=== PATIENT | female | born 1970 | race Two or more races ===

== ENCOUNTER 2018-10-26 10:50 | Emergency (ER) | payer SELFPAY ==
[~2018-10-26] VITALS: Ht 152.4 cm; Wt 50.0 kg
[2018-10-26 10:55] VITALS: BP 138/79; Ht 152.4 cm; Wt 50.0 kg
[2018-10-26 11:22] LABS: BASOPHILS 0.6 % (0-2); EOSINOPHILS 3.9 % (0-7); HEMATOCRIT 37.5 % (36.0-48.0); HEMOGLOBIN 12.7 g/dL (12-16); IMMATURE GRANULOCYTES 0.1 % (0-5); MCH 31.8 pg (26.0-34.0); MCHC 33.9 g/dL (31.0-37.0); MEAN PLATELET VOLUME 10.2 fL (7.4-10.4); MONOCYTES 5.6 % (2-11); NEUTROPHILS 52.8 % (40-80); PLATELET COUNT 216 10x3/uL (130-400); RBC 3.99 10x6/uL (4.00-5.40); RDW 12.9 % (11.5-14.5)
[2018-10-26 11:36] LABS: HCG SERUM NEGATIVE (NEGATIVE)
[2018-10-26 11:37] LABS: APPEARANCE CLEAR (CLEAR); BILIRUBIN NEGATIVE (NEGATIVE); COLOR STRAW (YELLOW); GLUCOSE NEGATIVE (NEGATIVE); KETONE NEGATIVE (NEGATIVE); NITRITE NEGATIVE (NEGATIVE); PROTEIN NEGATIVE (NEGATIVE); SPECIFIC GRAVITY 1.005 (1.005-1.020); UROBILINOGEN NORMAL (NORMAL)
[2018-10-26 11:37] LABS: ALBUMIN 3.4 g/dL (3.4-5.0); ALKALINE PHOSPHATASE 48 U/L (46-116); ALT (SGPT) 61 U/L (10-68); BILIRUBIN - TOTAL 0.29 mg/dL (0.2-1.3); CALC OSMOLALITY 279 mosm/kg (275-300); CALCIUM 8.4 mg/dL (8.5-10.1); CARBON DIOXIDE 28.1 mmol/L (21.0-32.0); CHLORIDE - SERUM 105 mmol/L (98-107); CREATININE - SERUM 0.6 mg/dL (0.6-1.3); GLUCOSE 126 mg/dL (74-106); POTASSIUM - SERUM 3.9 mmol/L (3.5-5.1); PROTEIN - SERUM 7.3 g/dL (6.4-8.2); SODIUM 140 mmol/L (136-145); UREA NITROGEN 11 mg/dL (7-18); eGFR NON AFRICAN AMERICAN > 90 mL/min (90-120)
[2018-10-26 11:39] LABS: BACTERIA FEW /hpf (NONE SEEN); EPITHELIAL CELLS 0-5 /hpf (0-5); WHITE CELLS - URINE 0-5 /hpf (0-5)
== END 2018-10-26 12:45 | disposition home or self-care (01) ==
LOC: D.ER 10:50
PROVIDERS: Family Medicine
DX: N92.6 Irregular menstruation, unspecified (principal); R10.30 Lower abdominal pain, unspecified